=== PATIENT | male | born 1980 | race Caucasian/White ===

== ENCOUNTER 2023-03-28 13:18 | Emergency (ER) | payer OTHER, SELFPAY ==
[2023-03-28 13:21] VITALS: BP 109/75; PULSE 56; RESP 16; TEMP 36.7; O2SAT 100
[2023-03-28] MEDS: Lidocaine 1% Multi-Dose 50 ML VIAL (14:44)
--- NOTE | 2023-03-28 14:58 | ED.GENADUL_ITS ---
Discharge Plan Disposition Patient Disposition: Home Discharge Details Clinical Impression: Foreign body of finger of left hand Primary Care Provider: Unknown,Unknown ED Provider: Angela Deutsch Home Meds and New Rx's Prescriptions: New cephalexin 500 mg capsule 500 mg PO QID Qty: 20 0RF No Action acetaminophen [Mapap Extra Strength] 500 MG tablet 1 tab PO PRN PRN ibuprofen 800 MG tablet 800 mg PO TID Qty: 60 0RF Discharge Instructions Instructions: Puncture Wound (ED) Additional Instructions: Tylenol or ibuprofen as needed for pain once the numbing medicine wears off. Take Keflex 500 mg 4x per day for 5 days. Return to ED for fever of 100.4 or above with red streaks, etc. Recheck with your PCP as needed. Discharge Data Discharge Date/Time-TO BE ENTERED AT DEPARTURE: 03/28/23 15:15 Medical Decision Making See procedure note. Patient tolerated splinter removal well and was discharged home on antibiotics. Medical Records Medical records reviewed: Yes I reviewed the patient's medical records. HPI General Date/Time Provider Initiated Documentation: 03/28/23 13:45 . HPI Narrative: This 43-year-old male patient presents with a chief complaint of splinter in his left middle finger. Patient reports that he was working with pressure-treated lumber for when the splinter went under lateral aspect of his nail and then out near his cuticle. The area sticking out from his cuticle is about 1.5 cm long. He tried to pull it out but was unable to do this. He says this happened at about 10:00 this morning. It does not hurt a ton and last he cut his the entry area beneath his nail. The pain is then moderate and stabbing in nature. The pain does not radiate anywhere. Nothing really makes it better or worse. The discomfort is constant. He has no red redness or red streaks running up his hand. Related Data Home Medications Medication Instructions Recorded Confirmed acetaminophen 500 mg tablet (Mapap 1 tab PO PRN PRN 11/28/14 03/28/23 Extra Strength) ibuprofen 800 mg tablet 800 mg PO TID ##60 11/28/14 03/28/23 cephalexin 500 mg capsule 500 mg PO QID #20 caps 03/28/23 Previous Rx's Medication Instructions Recorded ibuprofen 800 mg tablet 800 mg PO TID ##60 11/28/14 cephalexin 500 mg capsule 500 mg PO QID #20 caps 03/28/23 Allergies Allergy/AdvReac Type Severity Reaction Status Date / Time Penicillins Allergy Unknown Unverified 03/28/23 13:26 General Stated Complaint: Laceration KATHRYN: 4 Review of Systems Musculoskeletal Musculoskeletal: Reports other (Has splinter in his finger) Neurologic Neurologic: Denies localized weakness and Denies sensory deficit PFSH All Active Problems Foreign body of finger of left hand (Acute) Social History Smoking/Tobacco Use Status: Current every day Tobacco Type: smokeless tobacco Smoking risk assessment performed?: Yes Alcohol Intake: current Alcohol Intake frequency: holidays/special occasions only Drug use: Never Substance use type: does not use Do you feel safe at home: Yes Do you feel safe in your relationship?: Yes Exam Const General: no acute distress and well developed Nutritional Appearance: well nourished Orientation: alert and oriented x3 HENMT Head: normocephalic and atraumatic Eyes Conjunctivae: conjunctivae normal Neck Neck: supple Resp Effort & Inspection: normal respiratory effort Skin General skin exam: other (PWD) Extrem Left upper extremity: full ROM, normal capillary refill and hand (lge splinter under lat mid finger nail, exiting cuticle); no edema Other: Sensation intact distal to injury Course Vital Signs Vital signs: Vital Signs Temperature 36.7 C 03/28/23 13:21 Pulse 56 L 03/28/23 13:21 Respiratory Rate 16 03/28/23 13:21 Blood Pressure 109/75 03/28/23 13:21 Pulse Oximetry 100 03/28/23 13:21 Temperature 36.7 C 03/28/23 13:21 Temperature Source Skin 03/28/23 13:21 Pulse 56 L 03/28/23 13:21 Respiratory Rate 16 03/28/23 13:21 Respiratory Effort Normal, Non-Labored 03/28/23 13:49 Blood Pressure 109/75 03/28/23 13:21 Blood Pressure Position Sitting 03/28/23 13:21 Pulse Oximetry 100 03/28/23 13:21 Oxygen Delivery Method Room Air 03/28/23 13:21 Oxygen Flow Rate 0 03/28/23 13:21 Pain Level 3 03/28/23 13:43 Procedures Other Description: Splinter removal: Patient's finger was anesthetized with 1% lidocaine via d igital block. About 5 mL was used. Finger was prepped and draped sterilely. End of the splinter sticking out from the cuticle was trimmed. This area was grabbed with hemostats and the splinter pulled out with steady pressure. An area of wood was peeled off the larger splinter but intact. The patient declined an x-ray of the area. I did tell him there is no way of knowing whether a tiny piece of wood got stuck inside of this. He will observe for signs and symptoms of infection and return as needed. Did give him antibiotics to take for same.
[2023-03-28] MEDS: Cephalexin 500 MG CAP PO (15:02)
== END 2023-03-28 15:15 | disposition home or self-care (01) ==
PROVIDERS: Emergency Provider Emergency Medicine
DX: S60.453A Superficial foreign body of left middle finger, initial encounter (principal); W45.8XXA Other foreign body or object entering through skin, initial encounter; Y93.89 Activity, other specified; Y92.89 Other specified places as the place of occurrence of the external cause; Y99.9 Unspecified external cause status
CPT/HCPCS: 90471; 99283; 99282